=== PATIENT | female | born 1990 | race Caucasian/White ===

== ENCOUNTER → 2019-02-14 | Outpatient (REF) | payer OTHER | LOC: M LAB REF 09:47 | PROVIDERS: ATTEND Obstetrics & Gynecology | DX: Z12.4 Encounter for screening for malignant neoplasm of cervix (principal) ==

== ENCOUNTER → 2019-04-21 | Outpatient (CLI) | payer OTHER ==
[2019-04-21 13:45] LABS: BASO % 0.5 % (0.0-1.0); EOS # 0.1 10^3/uL (0.0-0.5); EOS % 0.7 % (0.0-3.0); HEMATOCRIT 39.4 % (36.0-47.0); HEMOGLOBIN 13.4 g/dl (12.0-15.5); LYMPH # 2.2 10^3/uL (1.5-5.0); MEAN CORPUSCULAR VOLUME 91.2 fl (80.0-96.0); MONO # 0.7 10^3/uL (0.0-0.8); MONO % 8.5 % (0.0-5.0); NEUTROPHILS # 5.4 10^3/uL (1.5-8.5); NEUTROPHILS % 63.8 % (36.0-66.0); PLATELET COUNT, AUTOMATED 219 10^3/uL (150-450); RED BLOOD COUNT 4.32 10^6/uL (4.00-5.40); WHITE BLOOD COUNT 8.5 10^3/uL (4.0-10.0)
[2019-04-21 15:37] LABS: CHLAMYDIA DNA AMPLIFICATION NEGATIVE (NEGATIVE); GC DNA AMPLIFICATION NEGATIVE (NEGATIVE)
[2019-04-22 12:01] LABS: HEPATITIS C VIRUS ABY INDEX 0.2 INDEX (<0.8); HIV 1&2 SCREEN CENTAUR NEGATIVE (NEGATIVE); RUBELLA IgG QUALITATIVE SUSCEPTIBLE (IMMUNE)
== END ==
LOC: M SMT 09:04
PROVIDERS: ATTEND Obstetrics & Gynecology
DX: Z34.81 Encounter for supervision of other normal pregnancy, first trimester (principal); Z36.89 Encounter for other specified antenatal screening

== ENCOUNTER → 2019-05-04 | Outpatient (REF) | payer OTHER | LOC: M LAB REF 12:45 | PROVIDERS: ATTEND Advanced Practice Midwife | DX: Z11.3 Encounter for screening for infections with a predominantly sexual mode of transmission (principal) ==

== ENCOUNTER → 2019-05-09 | Outpatient (CLI) | payer OTHER ==
[2019-05-12 00:08] LABS: HSV IgM TYPES 1&2 <0.91 Ratio (0.00-0.90); HSV TYPE I IgG SPECIFIC 6.33 index (0.00-0.90); HSV TYPE II IgG SPECIFIC <0.91 index (0.00-0.90)
== END ==
LOC: M SMT 13:03
PROVIDERS: ATTEND Advanced Practice Midwife
DX: Z11.3 Encounter for screening for infections with a predominantly sexual mode of transmission (principal)

== ENCOUNTER → 2019-06-27 | Outpatient (CLI) | payer OTHER ==
--- NOTE | 2019-06-27 08:50 | REP ---
Clinical: Anatomical evaluation. Comparison: None . Findings: Examination demonstrates a single live intrauterine in breech presentation. motion is identified by technologist. Placenta is noted anterior and grade zero without evidence for placenta previa or abruption. Amniotic fluid volume is normal. Cervix measures 5.0 cm in length and appears closed. No evidence for nuchal cord. Gestational age by LMP 20 weeks 2 days with KEVEN 11/12/2019 . Gestational age by current measurements 20 weeks 0 days with KEVEN 11/14/2019 . FHR equals 147 beats per minute. BPD 4.8 cm 20 weeks 3 days HC 17.8 cm 20 weeks 2 days AC 15.2 cm 20 weeks 3 days FL 3.1 cm 19 weeks 5 days HL 2.9 cm 19 weeks 3 days HC/AC ratio 1.17 Estimated weight 335 grams ( 41 percentile). Anatomical assessment demonstrates normal structures including cranium, choroid plexus, cavum, cerebellum/posterior fossa, facial features, lungs, four-chamber heart/ventricular outflow tracts, diaphragm, stomach, cord insertion/three-vessel cord, kidneys/bladder, spine, and extremities. Impression: Single live intrauterine in breech presentation demonstrating appropriate interval growth. Anatomical assessment is complete and normal. No gross abnormalities are identified. Electronically Signed by George Kern MD 06/27/2019 08:42 A
== END ==
LOC: M RAD 07:34
PROVIDERS: ATTEND Advanced Practice Midwife
DX: Z34.82 Encounter for supervision of other normal pregnancy, second trimester (principal); Z3A.20 20 weeks gestation of pregnancy

== ENCOUNTER → 2019-08-15 | Outpatient (CLI) | payer OTHER ==
[2019-08-15 13:40] LABS: HEMATOCRIT 38.9 % (36.0-47.0); HEMOGLOBIN 12.7 g/dl (12.0-15.5); MEAN CORPUSCULAR HEMOGLOBIN 31.4 pg (27.0-33.0); MEAN CORPUSCULAR HGB CONC 32.6 g/dl (32.0-36.5); PLATELET COUNT, AUTOMATED 220 10^3/uL (150-450); RED BLOOD COUNT 4.05 10^6/uL (4.00-5.40); WHITE BLOOD COUNT 12.6 10^3/uL (4.0-10.0)
== END ==
LOC: M PLALAB 09:59
PROVIDERS: ATTEND Advanced Practice Midwife
DX: Z34.92 Encounter for supervision of normal pregnancy, unspecified, second trimester (principal); Z3A.00 Weeks of gestation of pregnancy not specified

== ENCOUNTER → 2019-10-19 | Outpatient (REF) | payer OTHER | LOC: M PLALAB 12:06 | PROVIDERS: ATTEND Advanced Practice Midwife | DX: Z36.85 Encounter for antenatal screening for Streptococcus B (principal) ==

== ENCOUNTER 2019-11-06 09:07 | Outpatient (CLI) | payer OTHER ==
[~2019-11-06] VITALS: Ht 162.6 cm; Wt 73.9 kg
[2019-11-06] MEDS ORDERED: PRENTAB9 PO (09:20)
[2019-11-06] MEDS ORDERED: VALT500T PO (09:21)
[2019-11-06] MEDS ORDERED: ZYRTTAB8 PO (09:22)
[2019-11-06 09:29] VITALS: BP 130/80
--- NOTE | 2019-11-06 12:55 | IPN ---
DATE: 11/06/2019 29-year-old 2, para 0-0-1-0 female at 39-1/7 weeks gestation by 8 week ultra, estimated date of confinement (EDC) 11/12/2019 presents with a questionable loss of fluid per vagina since the evening hours the day prior to evaluation. She got out of the shower and felt a gush of fluid. She had small amounts of leaking intermittently after that and then a long period where she did not leak any fluid. Her contractions however started to increase in frequency. They were mild to moderate in intensity. OBJECTIVE: Blood pressure 134/74, pulse 84. She is in no apparent distress. Head and neck exam normal. Lungs clear. Heart regular rate and rhythm. Abdomen nontender, gravid. heart tones category 1. Contractions irregular, mild. Sterile speculum exam negative ferning, negative Nitrazine, negative pool. Cervix 1 cm, 70%, -2, posterior, moderate, vertex. Extremities nontender. ASSESSMENT: 29-year-old 2, para 0-0-1-0 female at 39 and 2 with no evidence of ruptured membranes. Reassuring testing. PLAN: Patient had two speculum exams to try to rule out rupture of membranes. Rupture of membranes could not be definitively proven. The patient's testing is reassuring. Plan to discharge home for regular followup in the office.
== END 2019-11-06 12:00 | disposition home or self-care (01) ==
LOC: M LDO 09:07
PROVIDERS: ATTEND Specialist
DX: O47.1 False labor at or after 37 completed weeks of gestation (principal); Z3A.39 39 weeks gestation of pregnancy
CPT/HCPCS: 59025; G0378; G0463

== ENCOUNTER 2019-11-07 21:22 | Inpatient (IN) | payer OTHER ==
[~2019-11-07] VITALS: Ht 162.6 cm; Wt 77.7 kg
[~2019-11-07 21:22] MED LIST: PRENTAB9 PO; VALT500T PO; ZYRTTAB8 PO
[2019-11-07 21:40] VITALS: BP 134/81
[2019-11-07] MEDS ORDERED: PENICILLIN G POTASSIUM IV 5 MU in D5W MINI-BAG PLUS 100 ML IV STA (22:22)
[2019-11-07] MEDS ORDERED: LACTATED RINGER'S 1000 ML IV STA (22:22)
[2019-11-07 23:04] LABS: HEMATOCRIT 37.4 % (36.0-47.0); HEMOGLOBIN 13.1 g/dl (12.0-15.5); MEAN CORPUSCULAR HEMOGLOBIN 32.4 pg (27.0-33.0); MEAN CORPUSCULAR VOLUME 92.6 fl (80.0-96.0); PLATELET COUNT, AUTOMATED 209 10^3/uL (150-450); RED BLOOD COUNT 4.04 10^6/uL (4.00-5.40)
[2019-11-07 23:18] VITALS: BP 120/87
[2019-11-07] MEDS ORDERED: LR 1,000 ML IV SCH (23:25)
[2019-11-07] MEDS ORDERED: PROMETHAZINE INJ 25 MG/ML VIAL (J2550) IV ONE (23:30)
[2019-11-07] MEDS ORDERED: OXYTOCIN DRIP 30 UNITS in IV 1 EA IV SCH (23:30)
[2019-11-07] MEDS ORDERED: BUTORPHANOL 2 MG/ML INJ (J0595) IV ONE (23:30)
--- NOTE | 2019-11-07 23:34 | HPEPDOC ---
Obstetrical History & Physical General Date of Admission Nov 07, 2019 at 22:22 Primary Care Physician: DALIA WEBB CNM History of Present Illness Patient is a 29-year-old female who is a at 39.2 weeks gestation with an KEVEN of 11/12/19 based off of her first trimester ultrasound. She initiated care in her first trimester with a [facility]. Her has been complicated by a diagnosis of HSV-I genital lesions. She has been taking Vatrex for prophylaxis and denies any current symptoms of lesions. She presents to [facility] with complaints of contractions for the last 24 hours that have gotten more intense and closer together. She rpeorts bloody show. She denies leaking of fluid. She reports active movement. 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, Herpes simplex virus(HSV) Past Medical History Medical History Varicella as a child Surgical History: Appendectomy, Other (ganglion cyst removed from wrist) Family History Significant Family History: Diabetes, Hypertension Social History Marital Status: Family situation: Spouse/partner home Psychosocial History: No pertinent psych hx * Smoker: non-smoker Alcohol: Denies Drugs: denies Abuse Violence Screening Have you been hit/kicked/slapp: No Have you been sexually assault: No Imunizations Tdap status: current Influenza Status: current Allergies Coded Allergies: No Known Drug Allergies (Verified Allergy, Unknown, 11/07/19) Medications Scheduled Cetirizine HCl/Pseudoephedrine (Zyrtec-D Tablet) 1 Each Tab.er.12h, 1 TAB PO DAILY No.137/Iron/Folic Acd ( Vitamin Tablet) 1 Each Tablet, 1 TAB PO DAILY Valacyclovir HCl (Valtrex) 500 Mg Tablet, 500 MG PO BID Physical Examination Physical Examination GENERAL: Alert and oriented times three. BREAST: . ABDOMEN: Gravid and non-tender to touch. FETUS: Is vertex (VTX) by sterile vaginal examination (SVE), fetus is vertex (VTX) by Fabian. Perineum: no lesions noted. HEART RATE: Regular rate and rhythm. LUNGS: Clear to auscultation (CTA). EXTREMITIES: No edema. No clonus. Deep tendon reflexes (DTRs) + 2. Vital Signs/I&O Vital Signs Date Time Temp Pulse Resp B/P (MAP) Pulse Ox O2 Delivery O2 Flow Rate FiO2 11/07/19 21:40 97.8 87 18 134/81 (98) Laboratory Data 24H LABS Laboratory Tests 2 11/07/19 22:34: Serology Scanned Report Hepatitis B Testing 11/07/19 23:01: Nucleated Red Blood Cells % (auto) 0.0 CBC/BMP Laboratory Tests 11/07/19 23:01 Urine Culture: No Growth Pertinent Laboratoy Data Blood Type: O+ RBC Antibody Screen: Negative HIV: Negative Hepatitis B: Negative Hepatitis C: Negative Rapid Plasma Reagin: Nonreactive Rubella: Nonreactive Chlamydia/Gonorrhea: Negative Group B Streptococcus: Positive Glucose Tolerance Test: 94 Vaginal Examination Dilation: 3 cm Effacement: 100% Station: -1 Cervical Position: Anterior Presentation: Cephalic presentation Position: Vertex (occiput) Assessment Heart Rate (FHR): 125 Variability: Moderate Accelerations: Positive Decelerations: None Tocometer Contractions: Yes Frequency: irregular, other (2 to 9 minutes) Multi-drug resistant Organism: No history of MDRO Assessment/Plan Assessment IUP at 39.2 weeks gestation Active labor Category I FHR tracing GBS positive Plan Admit to L&D. OOB ad gary. Diet: clears. Group B Streptococcus positive. will start antibiotics per order. Labs and intravenous (IV) per unit protocol. Counseled on pain management options and potential for augmentation with IV Pitocin. Anesthesia consult per patient request. Lactated Ringers (LR): Bolus 800 mL prior to epidural, then at 125 mL/hr. Anticipate cervical change and . C-S as appropriate. DALIA WEBB CNM Nov 07, 2019 23:34
[2019-11-08] VITALS (25 sets, daily range): BP systolic 107–202; BP diastolic 66–94
[2019-11-08] MEDS ORDERED: FENTANYL 2MCG/ML ROPIVACAINE 0.2% IN 0.9% NACL 100ML IVBAG As Ordered ONE ×2 (03:10→13:45)
[2019-11-08] MEDS: PENICILLIN G POTASSIUM IV 2.5 MU in IV 1 EA IV SCH ×5 (03:31→19:08)
[2019-11-08] MEDS: FENTANYL/ROPIVACAINE/NACL BAG 100 ML EPIDURAL SCH ×2 (03:40→13:53)
[2019-11-08] MEDS ORDERED: NALOXONE INJ 0.4MG/1ML VIAL (J2310 PER 1MG) IV PRN ×3 (04:15→21:52)
[2019-11-08] MEDS ORDERED: ONDANSETRON 4MG/2ML VIAL (J2405 PER 1MG) IV PRN ×4 (04:15→22:45)
[2019-11-08] MEDS ORDERED: LACTATED RINGER'S 1000 ML IV PRN (04:15)
[2019-11-08] MEDS ORDERED: ePHEDrine SULFATE 25 MG/5 ML(5MG/ML) SYRINGE IV PRN (04:15)
[2019-11-08] MEDS ORDERED: REFRIGERATOR IV KEYS XX PRN (04:15)
[2019-11-08] MEDS ORDERED: EPIDURAL COMMENT XX SCH (04:15)
[2019-11-08] MEDS ORDERED: EPIDURAL/PCA KEYS XX PRN (04:15)
[2019-11-08] MEDS ORDERED: diphenhydrAMINE 50MG/ML VIAL (J1200) IV PRN ×2 (04:15→21:52)
[2019-11-08] MEDS: LR 1,000 ML IV SCH ×3 (08:48→14:32)
--- NOTE | 2019-11-08 10:22 | IPNPDOC ---
Text Note Date of Service The patient was seen on 11/08/19. NOTE Progress Pitocin @ 8mu. UC 2-3 minutes x 60 seconds. FH 150, Cat I tracing SVE unchanged /-2. Light bloody show, fluid remains clear Continue augmentation. Will update Dr Foster. VS,Robbibonkwame, I+O VS, Robbibone, I+O Laboratory Tests 11/07/19 23:01 Vital Signs Date Time Temp Pulse Resp B/P (MAP) Pulse Ox O2 Delivery O2 Flow Rate FiO2 11/08/19 09:21 98.3 11/08/19 09:10 88 18 115/74 (88) Merry Wu CNM Nov 08, 2019 10:22
[2019-11-08] MEDS: ACETAMINOPHEN 500 MG TAB PO PRN ×2 (12:37→12:43)
--- NOTE | 2019-11-08 14:28 | IPNPDOC ---
Text Note Date of Service The patient was seen on 11/08/19. NOTE Progress Pitocin @ 12mu UC 2-4 minutes FH Cat I SVE 8-//-[address] Foster updated Terry GRIGSBY, I+O VSTerry, I+O Laboratory Tests 11/07/19 23:01 Vital Signs Date Time Temp Pulse Resp B/P (MAP) Pulse Ox O2 Delivery O2 Flow Rate FiO2 11/08/19 12:29 98.3 11/08/19 12:27 104 18 145/82 (103) Merry Wu CNM Nov 08, 2019 14:28
--- NOTE | 2019-11-08 16:29 | IPNPDOC ---
Text Note Date of Service The patient was seen on 11/08/19. NOTE Progress Pitocin @ 14mu UC 3-5 minutes apart x 60 seconds FH 145, Cat I SVE C/C/+2 No overwhelming urge. Will labor down VS,Fishbone, I+O VS, Fishbone, I+O Laboratory Tests 11/07/19 23:01 Vital Signs Date Time Temp Pulse Resp B/P (MAP) Pulse Ox O2 Delivery O2 Flow Rate FiO2 11/08/19 16:26 99.8 11/08/19 15:57 80 18 128/85 (99) Merry Wu CNM Nov 08, 2019 16:29
--- NOTE | 2019-11-08 19:39 | IPNPDOC ---
Text Note Date of Service The patient was seen on 11/08/19. NOTE Progress FD. Pushing. FH 170's to 180's, presenting part +2 Dr Foster alerted to pt status. Will be in to evaluate. VS,Fishbone, I+O VS, Fishbone, I+O Laboratory Tests 11/07/19 23:01 Vital Signs Date Time Temp Pulse Resp B/P (MAP) Pulse Ox O2 Delivery O2 Flow Rate FiO2 11/08/19 18:19 82 18 132/72 (92) 11/08/19 16:26 99.8 Merry Wu CNM Nov 08, 2019 19:39
[2019-11-08] MEDS ORDERED: ceFAZolin SOD 2 GM in IV 1 EA IV ONE (21:00)
[2019-11-08] MEDS ORDERED: BICITRA 30ML SOLN UDC PO ONE (21:00)
[2019-11-08] MEDS ORDERED: OXYTOCIN INJ 10 UNITS/ML VIAL (J2590) As Ordered ONE ×2 (21:13→22:23)
[2019-11-08] MEDS ORDERED: LIDOCAINE 2% W/EPIN INJ 20ML **PRES FREE As Ordered ONE (21:16)
[2019-11-08] MEDS ORDERED: dexameTHASONE 4 MG/ML 1ML VIAL (J1100 PER 1MG) As Ordered ONE (21:50)
[2019-11-08] MEDS ORDERED: ONDANSETRON 4MG/2ML VIAL (J2405 PER 1MG) As Ordered ONE (21:50)
[2019-11-08] MEDS ORDERED: NALBUPHINE HCL 10 MG/ML AMP (J2300) IV PRN (21:52)
[2019-11-08] MEDS ORDERED: METOCLOPRAMIDE INJ 10MG/2ML VIAL (J2765 PER 1) IV PRN (21:52)
[2019-11-08] MEDS ORDERED: MORPHINE PRES-FREE INJ 10 MG/10 ML VIAL (J2274) As Ordered ONE (21:55)
[2019-11-08] MEDS ORDERED: KETOROLAC 30 MG/ML 1ML VIAL (J1885 PER 15MG) IV PRN (22:00)
[2019-11-08] MEDS ORDERED: fentaNYL 100 MCG/2 ML INJECTION (J3010) IV PRN (22:00)
[2019-11-08] MEDS ORDERED: oxyCODONE 5MG TAB PO PRN (22:00)
[2019-11-08 22:19] LABS: CORD GAS ABE V -2.4; CORD GAS HCO3 V 23.4 MEQ/L; CORD GAS O2 SAT V 61.5 %; CORD GAS PCO2 V 43.7 mmHg; CORD GAS PH V 7.346 UNITS; CORD GAS PO2 V 28.1 mmHg; CORD GAS SBC V 21.6 MEQ/L; CORD GAS TCO2 V 24.7 MEQ/L
[2019-11-08 22:20] LABS: CORD GAS ABE A -5.3; CORD GAS HCO3 A 23.6 MEQ/L; CORD GAS O2 SAT A 25.1 %; CORD GAS PCO2 A 60.9 mmHg; CORD GAS PH A 7.207 UNITS; CORD GAS PO2 A 26.2 mmHg; CORD GAS SBC A 18.5 MEQ/L; CORD GAS TCO2 A 25.5 MEQ/L
[2019-11-08] MEDS ORDERED: KETOROLAC 60 MG/2 ML VIAL (J1885 PER 15MG) As Ordered ONE (22:21)
[2019-11-08] MEDS ORDERED: OXYTOCIN DRIP 30 UNITS in IV 1 EA IV SCH (22:34)
[2019-11-08] MEDS ORDERED: PERCOCET 5MG/325MG TAB PO PRN ×2 (22:45)
[2019-11-08] MEDS ORDERED: RHOGAM 300 MCG (1500 IU) INJ (J2790) IM SCH (22:45)
[2019-11-08] MEDS ORDERED: DOCUSATE SODIUM 100 MG CAP PO PRN (22:45)
[2019-11-08] MEDS ORDERED: MEASLES,MUMPS,RUBELLA VACCINE INJ (MMR-II) (90707) SC SCH (22:45)
[2019-11-08] MEDS ORDERED: OXYTOCIN 30 UNITS IN 0.9% NaCl 500ML IV BAG (J2590) As Ordered ONE (23:08)
[2019-11-09] VITALS (11 sets, daily range): BP systolic 113–131; BP diastolic 68–79
--- NOTE | 2019-11-09 00:11 | RO ---
DATE OF PROCEDURE: 11/08/2019 PREPROCEDURE DIAGNOSIS: Term , labor, arrest of descent. POSTPROCEDURE DIAGNOSIS: Term , labor, arrest of descent. PROCEDURE: Primary low transverse section. SURGEON: Denys Foster MD DOOR INSTALLER: Josefina Rocha MD ANESTHESIA: Epidural. ESTIMATED BLOOD LOSS: 800 mL. URINE OUTPUT: 200 mL. FINDINGS: 6 pound 12 ounce female . scores 2, 7 and 9. Arterial cord gas 7.20, base excess -5.3, venous cord gas 7.34, base excess -2.4. Meconium present. Normal uterus, fallopian tubes and ovaries. Baby positioned in the occiput posterior position with left asynclitism present. DESCRIPTION OF PROCEDURE: The patient was taken to the operating room where epidural anesthesia was adequate. A [place] catheter was already in place. The urine in the [place] catheter bag was noted to be blood tinged from a greater than 2-hour second stage of labor. A Pfannenstiel skin incision was made with a scalpel and carried through to the fascia. The fascia was nicked and extended. The fascia was dissected off the rectus muscles. The peritoneal cavity was entered. A bladder flap was created. A bladder blade was placed. A curvilinear incision was made in the lower uterine segment until meconium-stained fluid was noted. This was extended manually. The infant was delivered from the vertex position without difficulty. The shoulders delivered with ease. The cord was doubly clamped and cut. The infant was handed off to awaiting nurses. The placenta was expressed. The uterus was exteriorized. An extension of the inferior border of the uterine incision from the midline towards the patient's left side was noted. The bladder was dissected further off the lower uterine segment and surface in order to discern how deep the extension went. The apex of the extension was reached and was secured with #0 Vicryl suture. This was closed in a running locked fashion. The remainder of the incisions were closed with #0 Vicryl in a running locked fashion. A second imbricating layer of #0 Vicryl was placed. The uterus was placed back in the abdominal cavity. The peritoneum was closed with #2-0 Vicryl in a running fashion. The fascia was closed with #0 Vicryl in a running fashion. The deep layer was irrigated and closed with #2-0 chromic. The skin was closed with #4-0 Monocryl subcuticular sutures. Sponge, instrument, and needle counts were correct. Urine in the catheter was noted to clear at the end of the procedure. MOLLY
[2019-11-09] MEDS: KETOROLAC 30 MG/ML 1ML VIAL (J1885 PER 15MG) IV SCH ×3 (04:31→17:15)
[2019-11-09] MEDS ORDERED: OXYC1TAB23 PO (05:19)
--- NOTE | 2019-11-09 06:25 | IPNPDOC ---
Text Note Date of Service The patient was seen on 11/09/19. NOTE PO #1 Feels well. Adequate pain management. France draining clear yellow urine. VSS, afebrile,normotensive Breasts soft, nipples intact Fundus firm Dressing intact, old drainage Lochia rubra light without odor PO #1 Routine care. Anticipate D/C in am VS,Fishbone, I+O VS, Fishbone, I+O Vital Signs Date Time Temp Pulse Resp B/P (MAP) Pulse Ox O2 Delivery O2 Flow Rate FiO2 11/09/19 06:00 98.1 80 18 120/75 (90) 96 Room Air I&O- Last 24 Hours up to 6 AM 11/09/19 06:00 Intake Total 4090 ml Output Total 3250 ml Balance 840 ml Merry Wu CNM Nov 09, 2019 06:25
[2019-11-09] MEDS: LR 1,000 ML IV SCH ×2 (07:30→11:20)
[2019-11-09 08:31] LABS: HEMATOCRIT 23.9 % (36.0-47.0); HEMOGLOBIN 8.2 g/dl (12.0-15.5); MEAN CORPUSCULAR HEMOGLOBIN 32.8 pg (27.0-33.0); MEAN CORPUSCULAR HGB CONC 34.3 g/dl (32.0-36.5); MEAN CORPUSCULAR VOLUME 95.6 fl (80.0-96.0); PLATELET COUNT, AUTOMATED 131 10^3/uL (150-450); WHITE BLOOD COUNT 15.8 10^3/uL (4.0-10.0)
[2019-11-09] MEDS: PRENATAL VITAMINS CHEWABLE TABLET PO SCH (11:26)
[2019-11-09] MEDS: IBUPROFEN 800 MG TAB PO SCH (23:35)
[2019-11-10 02:00] VITALS: BP 119/60
[2019-11-10 06:00] VITALS: BP 106/60
[2019-11-10] MEDS: PRENATAL VITAMINS CHEWABLE TABLET PO SCH (08:16)
[2019-11-10] MEDS: IBUPROFEN 800 MG TAB PO SCH ×2 (08:16→16:18)
[2019-11-10 18:06] VITALS: BP 131/82
[2019-11-11] MEDS: IBUPROFEN 800 MG TAB PO SCH ×2 (01:35→09:23)
[2019-11-11 05:41] VITALS: BP 123/80
[2019-11-11] MEDS ORDERED: IBUP80TA PO (07:40)
[2019-11-11] MEDS: PRENATAL VITAMINS CHEWABLE TABLET PO SCH (09:23)
--- NOTE | 2019-11-11 09:38 | DSES ---
DATE OF ADMISSION: 11/07/2019 DATE OF DISCHARGE: 11/11/2019 29-year-old, (G) 2, para (P0) 0-0-1-0, female at 39 and 2/7 weeks gestation who presented with regular contractions that became more intense. She was found to be in early labor upon admission. HOSPITAL COURSE: The patient was admitted on 11/07/2019. She had gradual change in dilation and required augmentation with Pitocin. On 11/08/2019, after a second stage of approximately 2 hours, she was diagnosed with arrest of descent. She ultimately proceeded for a resulting in a 6 pound 12 ounce female infant. The baby was noted to be in the occiput posterior position. Her postoperative course was unremarkable. She had adequate return of bladder and bowel function. Her postoperative hemoglobin was 8.2 g/dl. Her baby did have elevated bilirubin levels and required treatment. She was deemed stable for discharge on postoperative day #3. ADMISSION DIAGNOSIS: at term, labor. DISCHARGE DIAGNOSIS: Delivered. PROCEDURE: Primary low transverse section. DISPOSITION: The patient will followup with Dr. Foster in 2 weeks. Instructions reviewed. edited: 11/14/2019 0725 tkf [id number]
== END 2019-11-11 12:55 | disposition home or self-care (01) | DRG 773 ==
LOC: M LDO 21:22 → M LDI 22:22 → M OBS 11-09 01:14
PROVIDERS: ADMIT Advanced Practice Midwife; ATTEND Specialist
PROC: 10D00Z1 Extraction of Products of Conception, Low, Open Approach (ICD-10-PCS; principal; 2019-11-08 22:32)
DX: O98.32 Other infections with a predominantly sexual mode of transmission complicating childbirth (principal); O99.824 Streptococcus B carrier state complicating childbirth; A60.09 Herpesviral infection of other urogenital tract; Z3A.39 39 weeks gestation of pregnancy; O64.0XX0 Obstructed labor due to incomplete rotation of fetal head, not applicable or unspecified; Z37.0 Single live birth

== ENCOUNTER → 2020-06-29 | Outpatient (REF) | payer OTHER ==
[~2020-06-29] MED LIST changes: +IBUP80TA PO; +OXYC1TAB23 PO
== END ==
LOC: M SFHCWAGY 14:12
PROVIDERS: ATTEND Advanced Practice Midwife
DX: Z12.4 Encounter for screening for malignant neoplasm of cervix (principal); Z87.42 Personal history of other diseases of the female genital tract
CPT/HCPCS: G0123; G0463

== ENCOUNTER → 2020-08-10 | Outpatient (REF) | payer OTHER | LOC: M SFHCWAGY 10:15 | PROVIDERS: ATTEND Specialist | DX: R87.612 Low grade squamous intraepithelial lesion on cytologic smear of cervix (LGSIL) (principal) ==